=== PATIENT | female | born 1970 | race Caucasian/White ===

== ENCOUNTER 2019-02-17 16:45 | Inpatient (IN) ==
[2019-02-17] MEDS ORDERED: *HR* Labetalol 20 MG/4 ML SYRINGE IVP ONE (18:27)
--- NOTE | 2019-02-17 18:35 | Emergency Department Note ---
Disposition Clinical Impression: Hypertensive encephalopathy Disposition: Admitted As Inpatient Condition: Fair Referrals: Sulma Mendoza CNP [Primary Care Provider] - Forms: ED Satisfaction Letter, Work/School Release Time of Disposition: 21:14 General Adult HPI - General Chief complaint: ED General Medical Stated complaint: HTN Time Seen by Provider: 02/17/19 17:21 Source: patient Mode of arrival: ambulatory Limitations: no limitations Nursing Notes Reviewed: Yes Vital Signs Reviewed: Yes - History of Present Illness HPI Narrative: 78-year-old female with recent diagnosis of hypertension started on lisinopril arrives to the emergency department with high blood pressure. Noted to be 234 systolic. Patient was noted to be mildly confused from baseline per the over the course the past few days. No previous history of any confusion like this in the past. The patient has a mild dysarthria according to as well. Patient is slow to respond here in the emergency department but otherwise has not clearly normal neurologic examination on evaluation. Patient denies any complaints at this time. She states that she even feels slightly off. Patient has been taking her lisinopril as prescribed. Call her PCP who advised her to come to the emergency department. No other acute complaints at this time. Pain Scale: 4 - Related Data Home Medications Medication Instructions Recorded Confirmed Meloxicam 15 mg PO DAILY 02/08/19 02/17/19 [place] PO Q6HR PRN 02/17/19 Lisinopril 02/17/19 Oxycodone HCl [Roxybond] 5 mg PO Q6HR PRN 02/17/19 02/17/19 Previous Rx's Medication Instructions Recorded Gabapentin [Neurontin] 300 mg PO TID 14 Days #42 capsule 02/09/19 Ondansetron ODT [Zofran ODT] 4 mg SL Q8HR PRN #10 tab.rapdis 02/10/19 Allergies Allergy/AdvReac Type Severity Reaction Status Date / Time No Known Allergies Allergy Verified 02/10/19 01:23 All systems ED: reviewed and negative except as stated. Constitutional: Denies: fever, chills, weakness ENT ED: Denies: dysphagia Cardiovascular: Denies: chest pain Respiratory: Denies: dyspnea Gastrointestinal: Denies: abdominal pain Genitourinary: Denies: urgency, dysuria Musculoskeletal: Denies: back pain Integumentary: Denies: rash Neurological: Reports: confusion. Denies: headache, weakness, numbness, paresthesias Past Medical History - Past Medical History Attestation: Yes The following information was validated with the patient. Source: patient, old records reviewed Medical history: Reports: hypertension Surgical history: Reports: Psychiatric history: Reports: depression - Social History Smoking Status: Current every day smoker Smokeless Tobacco Status: No Alcohol use: Reports: occasionally Drug use: Reports: marijuana Physical Exam - General Limitations: no limitations General appearance: alert, in no apparent distress - Head Head exam: atraumatic, normocephalic, normal inspection - Eye Eye exam: Present: normal appearance, PERRL, EOMI - ENT ENT exam: normal exam, normal oropharynx, mucous membranes moist - Neck Neck exam: Present: normal inspection, full ROM, trachea midline - Chest Chest inspection: Present: normal inspection, symmetric chest wall rise - Respiratory Respiratory exam: Present: normal lung sounds bilaterally - Cardiovascular Cardiovascular exam: Present: regular rate, normal rhythm, normal heart sounds - Abdominal Exam Abdominal exam: Present: soft, Non-Tender. Absent: tenderness, distention, guarding, rebound, rigidity - Extremities Exam Extremities exam: Present: normal inspection, full ROM, normal capillary refill. Absent: tenderness, pedal edema - Neurological Exam Neurological exam: Present: alert, oriented X3 - Expanded Neurological Exam Patient oriented to: Present: person, place, time Speech: Present: fluid speech Cranial nerves: EOM function (II, III, IV, ): Normal, facial sensation (V): Normal, facial palsy (VII): Normal Cerebellar function: finger to nose: Normal Cerebellar function: normal gait Motor strength - LUE: 5/5 Motor strength - RUE: 5/5 Motor strength - LLE: 5/5 Motor strength - RLE: 5/5 Sensory exam upper extremity: light touch: Normal Sensory exam lower extremity: light touch: Normal Coma Scale Eye Opening: Spontaneous Coma Scale Motor Response: Obeys Commands Coma Scale Verbal Response: Oriented Coma Scale Total: 15 - Skin Skin exam: Present: warm, dry, intact, normal color Course Vital Signs Temperature 98.6 F 02/17/19 17:05 Pulse Rate 98 02/17/19 17:05 Respiratory Rate 16 02/17/19 17:05 Blood Pressure 234/113 02/17/19 17:05 O2 Sat by Pulse Oximetry 95 02/17/19 17:05 Temperature 98.6 F 02/17/19 17:05 Pulse Rate 72 02/17/19 20:59 Respiratory Rate 21 02/17/19 20:59 Blood Pressure 157/102 02/17/19 20:59 O2 Sat by Pulse Oximetry 97 02/17/19 19:18 Oxygen Delivery Oxygen Delivery Room Air Medical Decision Making - MDM Narrative Medical decision making narrative: Patient's workup in the emergency department demonstrates concerning findings for hypertensive encephalopathy. The patient will be admitted to the hospital at this time. Sis for both blood pressure control and further evaluation from neurology. Patient made aware and agrees to plan. No further questions or concerns at this time. Accepted by Dr. Perla. - Lab Data Lab results reviewed: Yes I reviewed the patient's lab results. Result diagrams: 02/17/19 19:19 02/17/19 19:19 Lab Results 02/17/19 02/17/19 02/17/19 Range/Units 19:19 19:19 19:19 WBC 12.7 H (4.3-11.1) K/mcL RBC 4.13 (3.82-4.97) M/mcL Hgb 13.2 (11.5-15.4) g/dL Hct 38.3 (35.3-44.9) % MCV 92.7 (83.0-100.0) fL MCH 32.0 (28.0-33.3) pg MCHC 34.5 (31.6-35.5) g/dL RDW 12.8 (11.5-14.5) % Plt Count 260 (140-400) K/mcL MPV 11.3 (9.4-12.4) fL Immature Gran % 0.7 (0-4) % Seg Neutrophils % 71.1 % Lymphocytes % 20.1 % Monocytes % 5.8 % Eosinophils % 1.8 % Basophils % 0.5 % Neutrophils # 9.0 H (1.6-8.9) K/mcL Lymphocytes # 2.6 (0.6-4.6) K/mcL Monocytes # 0.7 (0.0-1.3) K/mcL Eosinophils # 0.2 (0.0-0.6) K/mcL Basophils # 0.1 (0.0-0.2) K/mcL Sodium 134 L (136-145) mEq/L Potassium 3.9 (3.5-5.1) mEq/L Chloride 101 (98-107) mEq/L Carbon Dioxide 24 (23-29) mEq/L BUN 7 (6-20) mg/dL Creatinine 0.63 (0.60-1.20) mg/dL Est GFR ( Amer) > 60 (> 60) Est GFR (Non-Af Amer) > 60 (> 60) BUN/Creatinine Ratio 11 (6-26) Glucose 88 (70-105) mg/dL Calculated Osmolality 275 L (280-300) Calcium 9.4 (8.6-10.3) mg/dL Troponin I < 0.03 (< 0.04) ng/mL Urine Color Yellow (Yellow) Urine Clarity Clear (Clear) Urine pH 6.5 (5.0-8.0) pH Units Ur Specific [place] 1.005 L (1.010-1.025) Urine Protein Negative (Neg-Trace) mg/dL Urine Glucose (UA) Normal (Normal) mg/dL Urine Ketones Negative (Negative) mg/dL Urine Blood Negative (Negative) Urine Nitrite Negative (Negative) Urine Bilirubin Negative (Negative) Urine Urobilinogen Normal (Normal) mg/dL Ur Leukocyte Esterase Negative (Negative) Ur Culture Indicated? NO (NO) - Radiology Data Radiology results reviewed: Yes I reviewed the patient's radiology results. - EKG Data EKG #1 EKG attestation: Yes I reviewed and interpreted this EKG. EKG results narrative: Heart rate 82 beats for minute. Normal sinus rhythm. No ST elevation or ST depression noted. No acute changes noted.
--- NOTE | 2019-02-17 19:17 | Emergency Department Note ---
Disposition Clinical Impression: Hypertensive encephalopathy Disposition: Admitted As Inpatient Condition: Fair Referrals: Sulma Mendoza CADMIUM BURNER [Primary Care Provider] - Forms: ED Satisfaction Letter, Work/School Release Time of Disposition: 21:47 General Adult HPI - General Chief complaint: ED General Medical Stated complaint: HTN Time Seen by Provider: 02/17/19 17:21 Source: patient Mode of arrival: ambulatory Limitations: no limitations - History of Present Illness Pain Scale: 4 - Related Data Home Medications Medication Instructions Recorded Confirmed Meloxicam 15 mg PO DAILY 02/08/19 02/17/19 [place] PO Q6HR PRN 02/17/19 Lisinopril 02/17/19 Oxycodone HCl [Roxybond] 5 mg PO Q6HR PRN 02/17/19 02/17/19 Previous Rx's Medication Instructions Recorded Gabapentin [Neurontin] 300 mg PO TID 14 Days #42 capsule 02/09/19 Ondansetron ODT [Zofran ODT] 4 mg SL Q8HR PRN #10 tab.rapdis 02/10/19 Allergies Allergy/AdvReac Type Severity Reaction Status Date / Time No Known Allergies Allergy Verified 02/10/19 01:23 Constitutional: Denies: fever, chills, weakness ENT ED: Denies: dysphagia Cardiovascular: Denies: chest pain Respiratory: Denies: dyspnea Gastrointestinal: Denies: abdominal pain Genitourinary: Denies: urgency, dysuria Musculoskeletal: Denies: back pain Integumentary: Denies: rash Neurological: Reports: confusion. Denies: headache, weakness, numbness, paresthesias Past Medical History - Past Medical History Medical history: Reports: hypertension Surgical history: Reports: Psychiatric history: Reports: depression - Social History Smoking Status: Current every day smoker Smokeless Tobacco Status: No Alcohol use: Reports: occasionally Drug use: Reports: marijuana Physical Exam - General Limitations: no limitations General appearance: alert, in no apparent distress Course Vital Signs Temperature 98.6 F 02/17/19 17:05 Pulse Rate 98 02/17/19 17:05 Respiratory Rate 16 02/17/19 17:05 Blood Pressure 234/113 02/17/19 17:05 O2 Sat by Pulse Oximetry 95 02/17/19 17:05 Temperature 98.6 F 02/17/19 17:05 Pulse Rate 72 02/17/19 20:59 Respiratory Rate 21 02/17/19 20:59 Blood Pressure 157/102 02/17/19 20:59 O2 Sat by Pulse Oximetry 97 02/17/19 19:18 Oxygen Delivery Oxygen Delivery Room Air Medical Decision Making - Lab Data Result diagrams: 02/17/19 19:19 02/17/19 19:19 Lab Results 02/17/19 02/17/19 02/17/19 Range/Units 19:19 19:19 19:19 WBC 12.7 H (4.3-11.1) K/mcL RBC 4.13 (3.82-4.97) M/mcL Hgb 13.2 (11.5-15.4) g/dL Hct 38.3 (35.3-44.9) % MCV 92.7 (83.0-100.0) fL MCH 32.0 (28.0-33.3) pg MCHC 34.5 (31.6-35.5) g/dL RDW 12.8 (11.5-14.5) % Plt Count 260 (140-400) K/mcL MPV 11.3 (9.4-12.4) fL Immature Gran % 0.7 (0-4) % Seg Neutrophils % 71.1 % Lymphocytes % 20.1 % Monocytes % 5.8 % Eosinophils % 1.8 % Basophils % 0.5 % Neutrophils # 9.0 H (1.6-8.9) K/mcL Lymphocytes # 2.6 (0.6-4.6) K/mcL Monocytes # 0.7 (0.0-1.3) K/mcL Eosinophils # 0.2 (0.0-0.6) K/mcL Basophils # 0.1 (0.0-0.2) K/mcL Sodium 134 L (136-145) mEq/L Potassium 3.9 (3.5-5.1) mEq/L Chloride 101 (98-107) mEq/L Carbon Dioxide 24 (23-29) mEq/L BUN 7 (6-20) mg/dL Creatinine 0.63 (0.60-1.20) mg/dL Est GFR ( Amer) > 60 (> 60) Est GFR (Non-Af Amer) > 60 (> 60) BUN/Creatinine Ratio 11 (6-26) Glucose 88 (70-105) mg/dL Calculated Osmolality 275 L (280-300) Calcium 9.4 (8.6-10.3) mg/dL Troponin I < 0.03 (< 0.04) ng/mL Urine Color Yellow (Yellow) Urine Clarity Clear (Clear) Urine pH 6.5 (5.0-8.0) pH Units Ur Specific [place] 1.005 L (1.010-1.025) Urine Protein Negative (Neg-Trace) mg/dL Urine Glucose (UA) Normal (Normal) mg/dL Urine Ketones Negative (Negative) mg/dL Urine Blood Negative (Negative) Urine Nitrite Negative (Negative) Urine Bilirubin Negative (Negative) Urine Urobilinogen Normal (Normal) mg/dL Ur Leukocyte Esterase Negative (Negative) Ur Culture Indicated? NO (NO) Attestation Statement - Attestation Attestation: I examined this patient and my medical decision-making was reviewed with the Resident Physician. I agree with the documented findings, disposition and t reatment plan as described except to the extent set forth below. Patient presented to the ED with an elevated blood pressure. Sent in by her PCP. Patient is been having trouble for the past month. She was started on lisinopril. At her primary provider's office on Thursday she was elevated so they gave her some clonidine. Today the states she has to slow to speak. No numbness or chilling. No chest pain. Patient is status post back surgery recently. On examination she is awake alert oriented and appropriate on my evaluation. Blood pressure was 240 systolic in triage. Patient is feeling better at this time as her systolic is now down to 180. Plan. Cardiac workup. IV labetalol. Patient's blood pressure is improved with labetalol. Workup unremarkable. Patient will be admitted for further blood pressure control as her symptoms concern for hypertensive encephalopathy. EKG reviewed with the resident. Normal sinus at 82. Normal ST segments. Normal T waves. Unchanged from prior EKG on February 10. Chest X-Ray 02/17/19 18:26 IMPRESSION: No acute abnormality D/ / Lc Go / Lc Go Interpreting Provider: Lc Go Chest X-Ray 02/17/19 18:26 IMPRESSION: No acute abnormality D/ / Lc Go / Lc Go Interpreting Provider: Lc Go Head CT 02/17/19 18:26 IMPRESSION: No acute intracranial abnormality. D/ / Iban Nunez / Iban Nunez Interpreting Provider: Iban Nunez
[2019-02-17 19:39] LABS: Bilirubin,Urine Negative (Negative); Blood,Urine Negative (Negative); Clarity,Urine Clear (Clear); Color,Urine Yellow (Yellow); Glucose,Urine (UA) Normal (Normal); Ketones,Urine Negative (Negative); Leukocyte Esterase,Urine Negative (Negative); Nitrite,Urine Negative (Negative); PH,Urine 6.5 pH Units (5.0-8.0); Protein,Urine Negative (Neg-Trace); Specific Gravity,Urine 1.005 (1.010-1.025); Urobilinogen,Urine Normal (Normal)
[2019-02-17 19:41] LABS: Basophils # 0.1 K/mcL (0.0-0.2); Basophils % 0.5 %; Eosinophils # 0.2 K/mcL (0.0-0.6); Eosinophils % 1.8 %; Hematocrit 38.3 % (35.3-44.9); Hemoglobin 13.2 g/dL (11.5-15.4); Immature Granulocytes % 0.7 % (0-4); Lymphocytes # 2.6 K/mcL (0.6-4.6); Lymphocytes % 20.1 %; Mean Corpuscular HGB Conc 34.5 g/dL (31.6-35.5); Mean Corpuscular Volume 92.7 fL (83.0-100.0); Mean Platelet Volume 11.3 fL (9.4-12.4); Monocytes # 0.7 K/mcL (0.0-1.3); Monocytes % 5.8 %; Platelet Count 260 K/mcL (140-400); Red Blood Count 4.13 M/mcL (3.82-4.97); Red Cell Distribution Width 12.8 % (11.5-14.5); Segmented Neutrophils % 71.1 %; White Blood Count 12.7 K/mcL (4.3-11.1)
[2019-02-17 20:09] LABS: BUN/Creatinine Ratio 11 (6-26); Blood Urea Nitrogen 7 mg/dL (6-20); Calcium 9.4 mg/dL (8.6-10.3); Carbon Dioxide 24 mEq/L (23-29); Chloride 101 mEq/L (98-107); Glucose 88 mg/dL (70-105); Osmolality,Calculated 275 (280-300); Potassium 3.9 mEq/L (3.5-5.1); Sodium 134 mEq/L (136-145); Troponin I < 0.03 ng/mL (< 0.04); eGFR For African Americans > 60 (> 60); eGFR For Non-African Americans > 60 (> 60)
[2019-02-17] MEDS: Nitroglycerin 25 MG/250 ML INFUS..BTL IVC SCH (22:28)
[2019-02-18] MEDS ORDERED: Naloxone 0.4 MG/ML INJ IVP PRN (01:05)
--- NOTE | 2019-02-18 01:35 | Internal Med History&Physical ---
Date of Encounter: 02/17/19 Time of Encounter: 23:00 Internal Medicine - H&P: HPI Chief complaint: Elevated blood pressure History of present illness: Ms. Prado is a 48 year old female with no significant prior past medical history aside from back surgery last January who presented to the ED today due to elevated blood pressure. On arrival blood pressure was noted to be 234/113. Patient has been having trouble managing her blood pressure for the past month. Her hypertension was initially attributed to her back pain. She was recently started on lisinopril by her PCP and followed up again with them on Thursday at which time her blood pressure was again noted to be high. Clonidine was added. She has not had any pain since. Her has noted that for the past 2 days she has been speaking slowly. When I questioned the patient regarding any mental status changes, she stated that she has been feeling "off". She is also noted some word finding difficulties at times and has had intermittent headaches. She currently states that her word finding difficulty is not as bad but reports feeling extremely tired. She does report some nausea earlier but not currently. Denies any blurry vision, numbness or weakness. No reports of fever, chills, chest pain or shortness of breath. Patient has been taking her lisinopril and clonidine as prescribed. Prior to recently establishing care with her PCP, she states that she has not had insurance and years and has not followed with anyone for prolonged period of time. Patient has a [id number] smoking history. Drinks alcohol on occasions. Smokes marijuana. Family history of diabetes, hypertension, leukemia. Laboratory workup notable for a mild leukocytosis of 12.7. Negative troponin. Kidney function within normal limits. EKG was obtained which showed normal sinus rhythm without any evidence of ischemic changes. CT scan of the head showed no acute intracranial abnormality. Patient was given a one-time dose of labetalol 10 mg with improvement in blood pressure down 157/102. However patient's blood pressure continued to rise and was started on a nitro drip and placed on 2 N. for further evaluation. Past Med Surg Social Fam HX - Past Medical History Medical history: hypertension Psychiatric history: depression - Past Surgical History Surgical History: Additional surgical history: back sx - Social History Smoking Status: Current every day smoker Smokeless Tobacco Status: No Alcohol use: occasionally Drug use: marijuana Internal Medicine - H&P: Meds Meloxicam 15 mg PO DAILY 02/08/19 [History] Gabapentin [Neurontin] 300 mg PO TID 14 Days #42 capsule 02/09/19 [Rx] Ondansetron ODT [Zofran ODT] 4 mg SL Q8HR PRN #10 tab.rapdis 02/10/19 [Rx] [place] PO Q6HR PRN 02/17/19 [History] Lisinopril 10 mg PO DAILY 02/17/19 [History] Oxycodone HCl [Roxybond] 5 mg PO Q6HR PRN 02/17/19 [History] Allergy/AdvReac Type Severity Reaction Status Date / Time No Known Allergies Allergy Verified 02/10/19 01:23 All Systems PM: A 10-system review of systems was performed and is negative for pertinent findings except as documented above in the HPI. - Constitutional Constitutional: no chills, no fever(s), no night sweats - EENT Eyes: no change in vision, no discharge, no pain, no photophobia Ears: no ear discharge, no ear pain, no tinnitus Nose, mouth and throat: no dysphagia, no nasal discharge, no neck pain, no sore throat - Cardiovascular Cardiovascular ROS IM: no chest pain, no diaphoresis, no dyspnea, no lightheadedness, no palpitations, no syncope - Respiratory Respiratory: no cough, no dyspnea, no wheezing, no excessive phlegm production - Gastrointestinal Gastrointestinal: no abdominal pain, no diarrhea, no hematemesis, no hematochezia, no melena, no nausea, no vomiting - Genitourinary Genitourinary: no change in urinary stream, no dysuria, no flank pain, no hematuria - Musculoskeletal Musculoskeletal ROS IM: no numbness, no tingling - Integumentary Integumentary IM: no rash, no unusual bruising - Neurological Neurological ROS: no confusion, no convulsions, no focal weakness, no numbness, no tingling, no tremor(s) - Hematologic/Lymphatic Hematologic/Lymphatic: no easy bruising - Constitutional Vitals: Temp Pulse Resp BP Pulse Ox 98.6 F 80 16 155/87 96 02/17/19 17:05 02/18/19 00:26 02/18/19 00:26 02/18/19 00:26 02/18/19 00:26 Exam: General: Alert and oriented 3 lying in bed in no acute distress Skin:Normal color, no rash, no lesions. HEENT:EOM, pupils equal, round and reactive. Cardiovascular:Normal S1 & S2, no rubs, murmurs or gallops. No JVD. Pulse regular. Lungs:Normal breath sounds, no wheezes or crackles. Abdomen:Soft, non-tender, no rigidity. Extremities:No deformity, no edema or tenderness, no joint swelling or clubbing. Neurological:Normal cognition and motor skills. Cranial 2 through 12 intact. No evidence of pronator drift. Muscle strength in the upper and lower extremities 5 out of 5 bilaterally. No visual field deficits. Pulses:Carotid and radial pulses normal +2. Rest of the physical exam is non contributory Internal Med - H&P Results - Labs CBC & Chem 7: 02/18/19 04:33 02/18/19 04:33 Labs: Short CBC 02/17/19 Range/Units 19:19 WBC 12.7 H (4.3-11.1) K/mcL Hgb 13.2 (11.5-15.4) g/dL Hct 38.3 (35.3-44.9) % Plt Count 260 (140-400) K/mcL Neutrophils # 9.0 H (1.6-8.9) K/mcL BMP 02/17/19 19:19 Sodium 134 L Potassium 3.9 Chloride 101 Carbon Dioxide 24 BUN 7 Creatinine 0.63 Glucose 88 Calcium 9.4 Cardiac Enzymes 02/17/19 Range/Units 19:19 Troponin I < 0.03 (< 0.04) ng/mL Urine 02/17/19 Range/Units 19:19 Urine Color Yellow (Yellow) Urine Clarity Clear (Clear) Urine pH 6.5 (5.0-8.0) pH Units Ur Specific [place] 1.005 L (1.010-1.025) Urine Protein Negative (Neg-Trace) mg/dL Urine Glucose (UA) Normal (Normal) mg/dL - Impressions ITS Impressions Chest X-Ray 02/17/19 18:26 IMPRESSION: No acute abnormality D/ / Lc Go / Lc Go Interpreting Provider: Lc Go Head CT 02/17/19 18:26 IMPRESSION: No acute intracranial abnormality. D/ / Iban Nunez / Iban Nunez Interpreting Provider: Iban Nunez - Assessment and Plan (1) Hypertensive encephalopathy Current Visit: Yes Status: Acute Assessment and plan: Patient presenting with reported confusion headache, nausea and word finding difficulties in the setting of significantly elevated blood pressure concerning for hypertensive encephalopathy. Patient currently neurologically intact. No evidence of end organ damage. CT scan of the head shows no acute intercranial abnormalities. Patient currently appears to be asymptomatic. Patient transition to nitroglycerin for management of her hypertension. Low suspicion for CVA/TIA -Continue neuro checks -We will continue patient on nitroglycerin drip with blood pressure goal of <160/90 for the next 24 hours -Consider transitioning back to by mouth regimen in the morning -Will obtain MRI in the morning to rule out CVA/TIA (2) Neutrophilic leukocytosis Current Visit: Yes Status: Acute Assessment and plan: Neutrophilic leukocytosis of 12.7. No other clinical symptoms to suggest underlying infection. Suspect stress-induced in the setting of significant hypertension. We will continue to monitor. (3) Elevated blood pressure reading Current Visit: No Status: Acute Assessment and plan: See above (4) DVT prophylaxis Current Visit: Yes Status: Acute - Time Spent With Patient Total time spent is greater than 50% in coordination of care (as documented) at patient's floor/unit and/or counseling patient:
[2019-02-18] MEDS ORDERED: Ondansetron ODT 4 MG TAB.RAPDIS SL PRN (01:45)
[2019-02-18] MEDS: *HR* OxyCODONE Immed Rel 5 MG TABLET PO PRN ×2 (05:08→14:54)
[2019-02-18 05:15] LABS: Alanine Aminotransferase 13 Units/L (7-52); Albumin 4.1 g/dL (3.5-5.7); Albumin/Globulin Ratio 1.7 (1.1-2.2); Alkaline Phosphatase 63 Units/L (34-104); Aspartate Amino Transferase 14 Units/L (13-39); BUN/Creatinine Ratio 11 (6-26); Bilirubin,Total 0.5 mg/dL (0.3-1.0); Blood Urea Nitrogen 6 mg/dL (6-20); Calcium 9.2 mg/dL (8.6-10.3); Carbon Dioxide 26 mEq/L (23-29); Chloride 100 mEq/L (98-107); Chol/HDL Ratio 3.7 (0-4.9); Cholesterol 168 mg/dL (< 200); Globulin 2.4 g/dL (2.4-3.5); Glucose 91 mg/dL (70-105); HDL Cholesterol 45 mg/dL (40-59); LDL Cholesterol,Calculated 105 mg/dL (0-99); Magnesium 1.9 mg/dL (1.6-2.6); Osmolality,Calculated 273 (280-300); Potassium 3.5 mEq/L (3.5-5.1); Sodium 133 mEq/L (136-145); Total Protein 6.5 g/dL (6.4-8.9); Triglycerides 90 mg/dL (< 150); eGFR For African Americans > 60 (> 60); eGFR For Non-African Americans > 60 (> 60)
[2019-02-18 05:18] LABS: Basophils # 0.1 K/mcL (0.0-0.2); Basophils % 0.6 %; Eosinophils # 0.2 K/mcL (0.0-0.6); Eosinophils % 2.2 %; Hematocrit 39.3 % (35.3-44.9); Hemoglobin 13.4 g/dL (11.5-15.4); Immature Granulocytes % 0.5 % (0-4); Lymphocytes # 1.9 K/mcL (0.6-4.6); Lymphocytes % 19.2 %; Mean Corpuscular HGB Conc 34.1 g/dL (31.6-35.5); Mean Corpuscular Hemoglobin 31.6 pg (28.0-33.3); Mean Corpuscular Volume 92.7 fL (83.0-100.0); Mean Platelet Volume 11.1 fL (9.4-12.4); Monocytes # 0.6 K/mcL (0.0-1.3); Monocytes % 6.5 %; Neutrophils # 6.9 K/mcL (1.6-8.9); Platelet Count 256 K/mcL (140-400); Red Blood Count 4.24 M/mcL (3.82-4.97); Red Cell Distribution Width 12.6 % (11.5-14.5); White Blood Count 9.7 K/mcL (4.3-11.1)
[2019-02-18] MEDS: Acetaminophen 325 MG TABLET PO PRN ×3 (08:12→20:07)
[2019-02-18] MEDS: Gabapentin 300 MG CAPSULE PO SCH ×3 (08:12→20:07)
[2019-02-18] MEDS: *HR* Labetalol 20 MG/4 ML SYRINGE IVP PRN ×2 (08:24→20:08)
--- NOTE | 2019-02-18 08:31 | Event Note ---
Date of Encounter: 02/18/19 Time of Encounter: 08:20 Patient was admitted for hypertensive urgency, she is doing much better alert and oriented 3, complaining headache nausea from nitro drip. She was started on lisinopril but was not taking it. We will start lisinopril 10 mg and wean nitroglycerin off and add labetolol prn 10 mg as needed. (1) Hypertensive encephalopathy, resolved, discussed with Nurse to wean NTG drip, keep SBP 160-180 Current Visit: Yes Status: Acute Assessment and plan: Patient presenting with reported confusion headache, nausea and word finding difficulties in the setting of significantly elevated blood pressure concerning for hypertensive encephalopathy. Patient currently neurologically intact. No evidence of end organ damage. CT scan of the head shows no acute intercranial abnormalities. Patient currently appears to be asymptomatic. Patient transition to nitroglycerin for management of her hypertension. Low suspicion for CVA/TIA -Continue neuro checks pending MRI, weaning NTG (2) Neutrophilic leukocytosis from stress , resolved Current Visit: Yes Status: Acute Assessment and plan: Neutrophilic leukocytosis of 12.7. No other clinical symptoms to suggest underlying infection. Suspect stress-induced in the setting of significant hypertension. We will continue to monitor. (3) tobacco dependent, smoking cessation discussed Current Visit: No Status: Acute Assessment and plan: See above (4) DVT prophylaxis Current Visit: Yes Status: Acute
--- NOTE | 2019-02-18 15:01 | Electrocardiograph Report ---
[place] [id number] Test Date: 2019-02-17 Pat Name: Kelsy Prado Department: [id number] Room: 05 Gender: F Piping Engineer: : 1970 Requested By: Cullen Noonan Order Number: [id number] Reading MD: Daniel Zuniga Measurements Intervals [place] Rate: 82 P: 65 NE: 147 QRS: 57 QRSD: 90 T: 66 QT: 403 QTc: 471 Interpretive Statements Sinus rhythm Anteroseptal infarct, old Electronically Signed On 02-18-2019 14:59:38 EDT by Daniel Zuniga
[2019-02-18] MEDS: Nitroglycerin 25 MG/250 ML INFUS..BTL IVC SCH (22:15)
[2019-02-19] MEDS: Acetaminophen 325 MG TABLET PO PRN (03:04)
[2019-02-19 04:11] LABS: Basophils # 0.1 K/mcL (0.0-0.2); Basophils % 0.5 %; Eosinophils # 0.2 K/mcL (0.0-0.6); Eosinophils % 1.9 %; Hematocrit 41.1 % (35.3-44.9); Hemoglobin 14.2 g/dL (11.5-15.4); Immature Granulocytes % 0.4 % (0-4); Lymphocytes # 2.7 K/mcL (0.6-4.6); Lymphocytes % 22.4 %; Mean Corpuscular HGB Conc 34.5 g/dL (31.6-35.5); Mean Corpuscular Hemoglobin 31.8 pg (28.0-33.3); Mean Corpuscular Volume 91.9 fL (83.0-100.0); Mean Platelet Volume 11.2 fL (9.4-12.4); Monocytes # 0.9 K/mcL (0.0-1.3); Monocytes % 7.3 %; Platelet Count 255 K/mcL (140-400); Red Blood Count 4.47 M/mcL (3.82-4.97); Red Cell Distribution Width 12.8 % (11.5-14.5); Segmented Neutrophils % 67.5 %; White Blood Count 11.8 K/mcL (4.3-11.1)
[2019-02-19] MEDS: Gabapentin 300 MG CAPSULE PO SCH ×3 (08:00→20:12)
--- NOTE | 2019-02-19 08:35 | Internal Med Progress Note ---
Hospitalist Progress Note - Encounter Date of Encounter: 02/19/19 Time of Encounter: 11:00 - Subjective Interval History: Patient is a 48-year-old female without past medical care due to insurance issues recently diagnosed with hypertension and started on medication by primary care provider. Patient presented due to uncontrolled blood pressures and ence phalopathy. Blood pressures have improved on Nitrol drip. Will attempt to wean patient off the nitro drip while starting patient on oral BP medications and monitor for 24 hours for effectiveness. - Exam Vitals: Temp Pulse Resp BP Pulse Ox 98.0 F 76 14 154/96 98 02/19/19 07:20 02/19/19 07:20 02/19/19 07:20 02/19/19 07:20 02/19/19 07:20 Exam: Gen.: Nonacute distress, alert and oriented 3 ENT: Mucosal membranes moist Respiratory: Lungs are clear to auscultation bilaterally without any wheezing rhonchi or rales Cardiovascular: Normal S1 and S2 regular rate rhythm no murmurs rubs or gallops Abdomen: Soft and nondistended Extremities: No lower extremity edema Skin: Normal color - Assessment and Plan (1) Elevated blood pressure reading Current Visit: No Status: Acute Assessment and Plan: Patient without past medical care due to insurance issues recently diagnosed with hypertension and started on medication by primary care provider. Blood pressures have improved on Nitrol drip. Will attempt to wean patient off the nitro drip while starting patient on oral BP medications and monitor for 24 hours for effectiveness. (2) Hypertensive encephalopathy Current Visit: Yes Status: Acute Assessment and Plan: Patient currently appears to be asymptomatic. CT and MRI of brain showed no acute abnormalities. Will continue to monitor (3) Neutrophilic leukocytosis Current Visit: Yes Status: Acute Assessment and Plan: Neutrophilic leukocytosis of 11.8 No clinical symptoms to suggest underlying infection. Suspect stress-induced in the setting of significant hypertension. Will continue to monitor. DVT Prophylaxis: SCDs - Time Spent with Patient Total time spent is greater than 50% in coordination of care (as documented) at patient's floor/unit and/or counseling patient: Internal Medicine: Result - Labs CBC & Chem 7: 02/19/19 03:26 02/18/19 04:33 Labs: Short CBC 02/19/19 Range/Units 03:26 WBC 11.8 H (4.3-11.1) K/mcL Hgb 14.2 (11.5-15.4) g/dL Hct 41.1 (35.3-44.9) % Plt Count 255 (140-400) K/mcL Neutrophils # 8.0 (1.6-8.9) K/mcL - Impressions Impressions Brain MRI 02/18/19 01:44 IMPRESSION: 1. No acute intracranial abnormality. 2. Incidental right frontal arachnoid cyst. D/ / Chris Becerra / Chris Becerra Interpreting Provider: Chris Becerra Consult Discharge Plan - Plan Referrals: Sulma Mendoza CNP [Primary Care Provider] - 02/25/19 1:00 pm
[2019-02-19] MEDS: Nitroglycerin 25 MG/250 ML INFUS..BTL IVC SCH (22:11)
[2019-02-20] MEDS: Acetaminophen 325 MG TABLET PO PRN (07:03)
[2019-02-20] MEDS: Gabapentin 300 MG CAPSULE PO SCH ×3 (07:43→20:17)
[2019-02-20] MEDS: Lisinopril 20 MG TABLET PO SCH (07:43)
[2019-02-20] MEDS: amLODIPine 5 MG TABLET PO SCH (13:44)
--- NOTE | 2019-02-20 15:07 | Discharge Summary ---
Date of Encounter: 02/20/19 - Discharge Diagnosis (1) Elevated blood pressure reading Status: Acute (2) Hypertensive encephalopathy Status: Acute (3) Neutrophilic leukocytosis Status: Acute Hospital course: Ms. Prado is a 48 year old female - Time Spent with Patient Total time spent providing and/or coordinating discharge services: - Discharge Medications Prescriptions: New amLODIPine [Norvasc] 10 mg PO DAILY #60 tablet Metoprolol XL (24 HR) Succ [Toprol Xl] 50 mg PO DAILY #30 tab.er.24h Lisinopril [Zestril] 20 mg PO DAILY #30 tablet Continued Meloxicam 15 mg PO DAILY Gabapentin [Neurontin] 300 mg PO TID 14 Days #42 capsule Ondansetron ODT [Zofran ODT] 4 mg SL Q8HR PRN #10 tab.rapdis PRN Reason: Nausea Oxycodone HCl [Roxybond] 5 mg PO Q6HR PRN PRN Reason: Pain [place] Dmt 1 tab PO Q6-8H PRN PRN Reason: COUGH/CONGESTION Discontinued Lisinopril [Zestril] 10 mg PO DAILY Home Medications: Meloxicam 15 mg PO DAILY 02/08/19 [History] Gabapentin [Neurontin] 300 mg PO TID 14 Days #42 capsule 02/09/19 [Rx] Ondansetron ODT [Zofran ODT] 4 mg SL Q8HR PRN #10 tab.rapdis 02/10/19 [Rx] Oxycodone HCl [Roxybond] 5 mg PO Q6HR PRN 02/17/19 [History] [place] Dmt 1 tab PO Q6-8H PRN 02/19/19 [History] Lisinopril [Zestril] 20 mg PO DAILY #30 tablet 02/20/19 [Rx] Metoprolol XL (24 HR) Succ [Toprol Xl] 50 mg PO DAILY #30 tab.er.24h 02/20/19 [Rx] amLODIPine [Norvasc] 10 mg PO DAILY #60 tablet 02/20/19 [Rx] Allergies/Adverse Reactions: Allergy/AdvReac Type Severity Reaction Status Date / Time No Known Allergies Allergy Verified 02/19/19 14:23 Date of admission: 02/18/19 00:19 Primary care physician: Sulma Mendoza, - Constitutional Vitals: Temp Pulse Resp BP Pulse Ox 98.1 F 71 16 167/110 96 02/20/19 10:59 02/20/19 10:59 02/20/19 10:59 02/20/19 10:59 02/20/19 10:59 - Patient Status Disposition: Home, Self-Care Condition: Fair - Discharge Instructions Follow Up With: Sulma Mendoza CNP [Primary Care Provider] - 02/25/19 1:00 pm
--- NOTE | 2019-02-20 15:59 | Internal Med Progress Note ---
Hospitalist Progress Note - Encounter Date of Encounter: 02/20/19 Time of Encounter: 11:00 - Subjective Interval History: Patient is a 48-year-old female without past medical care due to insurance issues recently diagnosed with hypertension and started on medication by primary care provider. Patient presented due to uncontrolled blood pressures and ence phalopathy. Blood pressures have improved on Nitrol drip which has been discontinued. Patient has been started on 3 different oral hypertensives still with no control of blood pressure. - Exam Vitals: Temp Pulse Resp BP Pulse Ox 98.1 F 71 16 167/110 96 02/20/19 10:59 02/20/19 10:59 02/20/19 10:59 02/20/19 10:59 02/20/19 10:59 Exam: Gen.: Nonacute distress, alert and oriented 3 ENT: Mucosal membranes moist Respiratory: Lungs are clear to auscultation bilaterally without any wheezing rhonchi or rales Cardiovascular: Normal S1 and S2 regular rate rhythm no murmurs rubs or gallops Abdomen: Soft and nondistended Extremities: No lower extremity edema Skin: Normal color - Assessment and Plan (1) Elevated blood pressure reading Current Visit: No Status: Acute Assessment and Plan: Patient without past medical care due to insurance issues recently diagnosed with hypertension and started on medication by primary care provider. Blood pressures have improved on Nitrol drip which has been discontinued. Patient has been started on 3 different oral hypertensives still with no control of blood pressure. Will monitor overnight with IV hydralazine as needed. (2) Hypertensive encephalopathy Current Visit: Yes Status: Acute Assessment and Plan: Patient currently appears to be asymptomatic. CT and MRI of brain showed no acute abnormalities. Will continue to monitor (3) Neutrophilic leukocytosis Current Visit: Yes Status: Acute Assessment and Plan: Neutrophilic leukocytosis of 11.8 No clinical symptoms to suggest underlying infection. Suspect stress-induced in the setting of significant hypertension. Will continue to monitor. DVT Prophylaxis: SCDs - Time Spent with Patient Total time spent is greater than 50% in coordination of care (as documented) at patient's floor/unit and/or counseling patient: Internal Medicine: Result - Labs CBC & Chem 7: 02/19/19 03:26 02/18/19 04:33 Consult Discharge Plan - Plan Referrals: Sulma Mendoza CNP [Primary Care Provider] - 02/25/19 1:00 pm Prescriptions: amLODIPine [Norvasc] 10 mg PO DAILY #60 tablet Metoprolol XL (24 HR) Succ [Toprol Xl] 50 mg PO DAILY #30 tab.er.24h Lisinopril [Zestril] 20 mg PO DAILY #30 tablet
[2019-02-20] MEDS: Nitroglycerin 25 MG/250 ML INFUS..BTL IVC SCH (22:36)
[2019-02-21] MEDS: amLODIPine 5 MG TABLET PO SCH (07:48)
[2019-02-21] MEDS: Lisinopril 20 MG TABLET PO SCH (07:49)
[2019-02-21] MEDS: Gabapentin 300 MG CAPSULE PO SCH ×3 (07:49→20:55)
[2019-02-21 08:59] LABS: Basophils # 0.1 K/mcL (0.0-0.2); Basophils % 0.7 %; Eosinophils # 0.2 K/mcL (0.0-0.6); Eosinophils % 1.7 %; Hematocrit 45.2 % (35.3-44.9); Hemoglobin 15.2 g/dL (11.5-15.4); Immature Granulocytes % 0.7 % (0-4); Lymphocytes # 1.8 K/mcL (0.6-4.6); Mean Corpuscular HGB Conc 33.6 g/dL (31.6-35.5); Mean Corpuscular Hemoglobin 31.4 pg (28.0-33.3); Mean Corpuscular Volume 93.4 fL (83.0-100.0); Mean Platelet Volume 11.2 fL (9.4-12.4); Monocytes # 0.6 K/mcL (0.0-1.3); Monocytes % 6.3 %; Neutrophils # 7.3 K/mcL (1.6-8.9); Platelet Count 314 K/mcL (140-400); Red Blood Count 4.84 M/mcL (3.82-4.97); Segmented Neutrophils % 72.6 %
[2019-02-21 09:21] LABS: BUN/Creatinine Ratio 14 (6-26); Blood Urea Nitrogen 10 mg/dL (6-20); Calcium 9.7 mg/dL (8.6-10.3); Carbon Dioxide 28 mEq/L (23-29); Chloride 100 mEq/L (98-107); Glucose 144 mg/dL (70-105); Magnesium 2.1 mg/dL (1.6-2.6); Osmolality,Calculated 278 (280-300); Phosphorous 3.8 mg/dL (2.7-4.5); Sodium 133 mEq/L (136-145); eGFR For African Americans > 60 (> 60); eGFR For Non-African Americans > 60 (> 60)
--- NOTE | 2019-02-21 09:41 | Internal Med Progress Note ---
Hospitalist Progress Note - Encounter Date of Encounter: 02/21/19 Time of Encounter: 09:39 - Subjective Interval History: Patient seen and examined earlier this morning. resting in chair and reports of feeling better compared to previous day. Denies any headache, chest pain, sob, abd pain, n/v, fever, or chills. Noted to be hypertensive this morning. No overnight events reported Pt is eager to go home but agrees with holding the discharge until BP is better controlled. Ten point ROS is negative except as listed above - Exam Vitals: Temp Pulse Resp BP Pulse Ox 98.3 F 86 18 159/101 96 02/21/19 07:33 02/21/19 07:33 02/21/19 07:33 02/21/19 07:33 02/21/19 03:04 Exam: General: No acute distress, AAO x 3 HEENT: EOMI, PERRLA, NC/AT, no scleral icterus Respiratory: Clear to auscultate bilaterally, no wheezing, no rales Cardiovascular: Regular, Rate, Rhythm, No murmurs GI: Soft, Non tender, non distended, normal bowel sounds Ext: No edema, no tenderness, positive pulses Neuro: AAO x 3, no focal deficits, CN II-XII grossly intact Rest of the clinical exam is noncontributory - Assessment and Plan (1) Uncontrolled hypertension Current Visit: Yes Status: Acute Assessment and Plan: Noted to remain hypertensive after receiving this morning's antihypertensive medications Will continue current dose of Amlodipine, Metoprolol at this time Increase Lisinopril to 30mg PO qdaily closely monitor BP Hydralazine IVP PRN SBP>160 Discharge pending better BP control (2) Hypertensive encephalopathy Current Visit: Yes Status: Resolved Assessment and Plan: resolved (3) Neutrophilic leukocytosis Current Visit: Yes Status: Resolved Assessment and Plan: resolved will continue to monitor (4) DVT prophylaxis Current Visit: Yes Status: Acute Assessment and Plan: Heparin SQ - Time Spent with Patient Total time spent is greater than 50% in coordination of care (as documented) at patient's floor/unit and/or counseling patient: 25 - 35 minutes Plan of Care Discussed with: patient (patient/RN/pharmacist) Internal Medicine: Result - Labs CBC & Chem 7: 02/21/19 08:36 02/21/19 08:36 Labs: Short CBC 02/21/19 Range/Units 08:36 WBC 10.0 (4.3-11.1) K/mcL Hgb 15.2 (11.5-15.4) g/dL Hct 45.2 H (35.3-44.9) % Plt Count 314 (140-400) K/mcL Neutrophils # 7.3 (1.6-8.9) K/mcL BMP 02/21/19 08:36 Sodium 133 L Potassium 4.0 Chloride 100 Carbon Dioxide 28 BUN 10 Creatinine 0.69 Glucose 144 H Calcium 9.7 Consult Discharge Plan - Plan Referrals: Sulma Mendoza CNP [Primary Care Provider] - 02/25/19 1:00 pm Prescriptions: RX: amLODIPine [Norvasc] 10 mg PO DAILY #60 tablet RX: Metoprolol XL (24 HR) Succ [Toprol Xl] 50 mg PO DAILY #30 tab.er.24h RX: Lisinopril [Zestril] 20 mg PO DAILY #30 tablet
--- NOTE | 2019-02-21 15:15 | Electrocardiograph Report ---
[address] [address] Test Date: 2019-02-17 Pat Name: Kelsy Prado Department: [id number] Room: 2N05 Gender: F [employer]: Noah : 1970 Requested By: Case Eugene Order Number: [id number] Reading MD: Pola Monge Measurements Intervals Maxwell Rate: 82 P: 61 CT: 156 QRS: 40 QRSD: 81 T: 64 QT: 363 QTc: 401 Interpretive Statements SINUS RHYTHM POSSIBLE RIGHT VENTRICULAR CONDUCTION DELAY CANNOT RULE OUT SEPTAL MYOCARDIAL INFARCTION, PROBABLY OLD Electronically Signed On 02-21-2019 15:14:02 EDT by Pola Monge
[2019-02-21] MEDS: *HR* Heparin 5,000 UNIT/ML VIAL SQ SCH (16:53)
[2019-02-22 05:28] LABS: BUN/Creatinine Ratio 16 (6-26); Blood Urea Nitrogen 11 mg/dL (6-20); Calcium 9.6 mg/dL (8.6-10.3); Carbon Dioxide 27 mEq/L (23-29); Chloride 102 mEq/L (98-107); Glucose 94 mg/dL (70-105); Magnesium 2.1 mg/dL (1.6-2.6); Osmolality,Calculated 277 (280-300); Potassium 4.2 mEq/L (3.5-5.1); Sodium 134 mEq/L (136-145); eGFR For African Americans > 60 (> 60); eGFR For Non-African Americans > 60 (> 60)
[2019-02-22] MEDS: *HR* Heparin 5,000 UNIT/ML VIAL SQ SCH (06:21)
[2019-02-22] MEDS: Gabapentin 300 MG CAPSULE PO SCH (07:36)
[2019-02-22] MEDS: amLODIPine 5 MG TABLET PO SCH (07:36)
[2019-02-22] MEDS ORDERED: Lisinopril 20 MG TABLET PO SCH (09:00)
--- NOTE | 2019-02-22 09:41 | Discharge Summary ---
- NOTES TO OUTPATIENT PROVIDER Notes to Outpatient Provider: Patient was admitted for HTN Urgency, started on Metoprolol, Amlodipine, and Lisinopril. Please closely monitor BP and adjust hypertensive medications as needed. Date of Encounter: 02/22/19 Time of Encounter: 08:46 - Discharge Diagnosis (1) Uncontrolled hypertension Priority: Primary Status: Acute (2) Hypertensive encephalopathy Priority: Primary Status: Resolved (3) Neutrophilic leukocytosis Priority: Secondary Status: Resolved (4) DVT prophylaxis Priority: Secondary Status: Acute Hospital course: Ms. Prado is a 48 year old female with PMH of HTN who was admitted for hypertensive encephalopathy. She was started on nitroglycerin drip and underwent neuro workup to rule out any intracranial abnormalities contributing to her confusion. Pt responded well to nitro drip with improvement in BP and resolution of confusion. She was transitioned to PO meds for BP control. Discharge was delayed due to poor control on oral hypertensive medications, requiring frequent adjustment in medications. Patient is seen and examined with family present at bedside this morning. She reports of feeling well, is back to her baseline mental status (AAO x 3), denies any headache, dizziness, sob, chest pain and wishes to be discharged to home. She is noted to be hypertensive but prior readings from yesterday were within acceptable range. Pt is to receive morning BP meds, if BP is stable, then she will be discharged to home with outpatient follow up with PCP. Patient demonstrates understanding of her hospital course and agrees with the discharge care and plan. Discharge discussed with: patient, family, nurse, case management - Time Spent with Patient Total time spent providing and/or coordinating discharge services: 35 minutes Time spent: Greater than 30 minutes - Discharge Medications Prescriptions: New amLODIPine [Norvasc] 10 mg PO DAILY #60 tablet Metoprolol [Lopressor] 25 mg PO BID #60 tablet Lisinopril [Zestril] 30 mg PO DAILY #30 tablet Continued Meloxicam 15 mg PO DAILY Gabapentin [Neurontin] 300 mg PO TID 14 Days #42 capsule Ondansetron ODT [Zofran ODT] 4 mg SL Q8HR PRN #10 tab.rapdis PRN Reason: Nausea Oxycodone HCl [Roxybond] 5 mg PO Q6HR PRN PRN Reason: Pain [place] Dmt 1 tab PO Q6-8H PRN PRN Reason: COUGH/CONGESTION Discontinued Lisinopril [Zestril] 10 mg PO DAILY Home Medications: Meloxicam 15 mg PO DAILY 02/08/19 [History] Gabapentin [Neurontin] 300 mg PO TID 14 Days #42 capsule 02/09/19 [Rx] Ondansetron ODT [Zofran ODT] 4 mg SL Q8HR PRN #10 tab.rapdis 02/10/19 [Rx] Oxycodone HCl [Roxybond] 5 mg PO Q6HR PRN 02/17/19 [History] [place] Dmt 1 tab PO Q6-8H PRN 02/19/19 [History] amLODIPine [Norvasc] 10 mg PO DAILY #60 tablet 02/20/19 [Rx] Lisinopril [Zestril] 30 mg PO DAILY #30 tablet 02/22/19 [Rx] Metoprolol [Lopressor] 25 mg PO BID #60 tablet 02/22/19 [Rx] Allergies/Adverse Reactions: Allergy/AdvReac Type Severity Reaction Status Date / Time No Known Allergies Allergy Verified 02/19/19 14:23 Date of admission: 02/21/19 15:58 Primary care physician: Sulma Mendoza, Discharging clinician: Genesis Ramirez Anticipated date of discharge: 02/22/19 - Constitutional Vitals: Temp Pulse Resp BP Pulse Ox 98.0 F 73 18 163/95 96 02/22/19 07:31 02/22/19 07:41 02/22/19 07:31 02/22/19 07:31 02/22/19 07:31 Exam: General: No acute distress, AAO x 3 HEENT: EOMI, PERRLA, NC/AT, no scleral icterus Respiratory: Clear to auscultate bilaterally, no wheezing, no rales Cardiovascular: Regular, Rate, Rhythm, No murmurs GI: Soft, Non tender, non distended, normal bowel sounds Ext: No edema, no tenderness, positive pulses Neuro: AAO x 3, no focal deficits, CN II-XII grossly intact Rest of the clinical exam is noncontributory - Patient Status Disposition: Home, Self-Care - Discharge Instructions Follow Up With: Sulma Mendoza CNP [Primary Care Provider] - 02/25/19 1:00 pm Additional Instructions: Please follow up with your primary care physician within three to five days after your discharge from the hospital. Please closely monitor your blood pressure at home and keep a log of your daily blood pressure readings. Please take this BP readings log with you to your PCP's appointment. Your home medications have been changed as follows: -metoprolol 25mg twice a day -amlodipine 10mg once a day -lisinopril 30mg once a day -Resume all other home medications as prescribed by your primary care physician Please seek medical help if you have difficulty breathing or if chest pain occurs - Diet and Activity Activity: resume usual activities as tolerated Diet: low fat, low cholesterol
[2019-02-22 11:28] VITALS: BP 145/89
== END 2019-02-22 12:07 | disposition home or self-care (01) | DRG 199 ==
LOC: EMEROOARM 16:45 → 2NNU 16:45 → SUATTDRO 02-18 00:19 → 2NNU 02-18 00:34
PROVIDERS: ADMIT Internal Medicine; ATTEND Internal Medicine